=== PATIENT | female | born 1940 | race Caucasian/White ===

== ENCOUNTER 2016-04-30 15:02 | Inpatient (IN) | payer MEDICARE, OTHER ==
[~2016-04-30] VITALS: Ht 170.2 cm; Wt 80.3 kg
[~2016-04-30 15:02] MED LIST: ALPR.25 PO; AMLO5TAB2 PO; ASPI1TAB69 PO; BUSP1TAB PO; CALC1TAB30 PO; COLA100C3 PO; FLOR250C PO; LEVO.125 PO; LIPI40TA PO; LYRI75CA PO; MULT-135 PO; TOVI8TAB PO; TRAM50TA PO
[2016-05-08] MEDS ORDERED: PROPOFOL 200 MG/20 ML AMP IV ONE (12:00)
[2016-05-08] MEDS ORDERED: LACTATED RINGER'S 1000 ML INJ 1,000 ML IV ONE (12:00)
[2016-05-08] MEDS ORDERED: ceFAZolin 1,000 MG/NS 100 ML IV SCH ×2 (13:00)
[2016-05-08] MEDS ORDERED: DEXT 5%-NACL 0.9% 1000 ML INJ 1,000 ML IV SCH (13:00)
[2016-05-08] MEDS ORDERED: METRONIDAZOLE 500 MG/100 ML ISONTONIC SOLN IV SCH (13:00)
[2016-05-08] MEDS ORDERED: INSULIN HUMAN REGULAR 1,000 UNITS/10 ML VIAL SQ PRN (13:00)
[2016-05-08] MEDS ORDERED: ALVIMOPAN 12 MG CAPSULE - On Call PO SCH (13:00)
[2016-05-08] MEDS ORDERED: SODIUM CHLORID 0.9% 500 ML IV SCH (13:00)
[2016-05-08] MEDS ORDERED: LACTATED RINGER'S 1000 ML IV SCH (13:00)
[2016-05-08] MEDS ORDERED: METOPROLOL TARTRATE 25 MG TAB PO PRN (13:00)
--- NOTE | 2016-05-08 13:05 | PD.HP.UP ---
H&P Update Note The Pre-Admit History and Physical Examination regarding the above named patient was reviewed (including, but not limited to, vital signs, heart, lungs, co-morbid conditions), and upon re-examination it is noted that: the patient's condition has not significantly changed since the last examination. Herve Campa MD May 08, 2016 13:05
[2016-05-08 13:41] VITALS: BP 155/77; PULSE 65; RESP 16; TEMP 98.4; O2SAT 99
[2016-05-08] MEDS: ALVIMOPAN 12 MG CAPSULE - Post-op dosing PO SCH (14:06)
[2016-05-08] MEDS ORDERED: FAMOTIDINE 20 MG/2 ML VIAL ONE (15:39)
[2016-05-08] MEDS ORDERED: MIDAZOLAM HCL 2 MG/2 ML VIAL ONE (15:39)
[2016-05-08] MEDS ORDERED: ACETAMINOPHEN 1000 MG/100 ML VIAL IV ONE (15:39)
[2016-05-08] MEDS ORDERED: DEXAMETHASONE SOD PHOS 4 MG/ML VIAL ONE (15:39)
[2016-05-08] MEDS ORDERED: MORPHINE SULFATE 4 MG/ML INJ ONE (15:47)
[2016-05-08] MEDS ORDERED: SUGAMMADEX SODIUM 200 MG/2 ML VIAL IV PUSH ONE ×2 (17:25)
[2016-05-08] MEDS ORDERED: POTASSIUM CHLOR 40 MEQ PREMIX 100 ML IV PRN (17:45)
[2016-05-08] MEDS ORDERED: NALOXONE HCL 0.4 MG/ML AMP IV PRN (17:45)
[2016-05-08] MEDS ORDERED: POTASSIUM CHLOR 20 MEQ PREMIX 100 ML IV PRN (17:45)
[2016-05-08] MEDS ORDERED: KETOROLAC TROMETHAMINE 30 MG/ML (IVP) VIAL IVP PRN (17:45)
[2016-05-08] MEDS ORDERED: ACETAMINOPHEN 325 MG TAB PO PRN (17:45)
[2016-05-08] MEDS ORDERED: BENZOCAINE 6 MG/MENTHOL 10 MG LOZENGE SUCK-ON PRN (17:45)
[2016-05-08] MEDS ORDERED: SODIUM CHLORIDE 0.9% FLUSH 5 ML FLUSH IVF PRN (17:45)
[2016-05-08] MEDS ORDERED: Post-op Orders (for Pharmacy) MISC XX ONE (17:45)
[2016-05-08] MEDS ORDERED: ENALAPRILAT 1.25 MG/ML VIAL IV PRN (17:45)
[2016-05-08] MEDS ORDERED: ENALAPRILAT 2.5 MG/2 ML VIAL IV PRN (17:45)
[2016-05-08] MEDS ORDERED: ONDANSETRON HCL 4 MG/2 ML VIAL IV PRN (17:45)
[2016-05-08] MEDS ORDERED: BUPIVACAINE HCL PF 0.5% 30 ML VIAL NB SCH (17:45)
[2016-05-08] MEDS ORDERED: *MEPERIDINE 25 MG INJ VIAL PERIprocedural Use ONLY ONE (17:46)
[2016-05-08] MEDS ORDERED: fentaNYL CITRATE 250 MCG/5 ML AMP ONE (17:51)
[2016-05-08] MEDS ORDERED: *morphine SULFATE 8 MG/ML PERIprocedure ONLY ONE ×3 (17:54→18:20)
[2016-05-08] MEDS ORDERED: PILL SPLITTER OTHER PRN (18:00)
[2016-05-08] MEDS ORDERED: *ONDANSETRON 4 MG VIAL PERIprocedural Use ONLY ONE (18:09)
[2016-05-08] MEDS: D5-NS + KCL 20 MEQ INJ 1,000 ML IV SCH (18:10)
[2016-05-08] MEDS: MORPHINE SULFATE 30 MG/30 ML PCA IV SCH (18:10)
[2016-05-08] MEDS ORDERED: *HYDROmorphone PF 1 MG VIAL PERIprocedural Use ONLY ONE ×2 (18:31→19:05)
[2016-05-08] MEDS: METOCLOPRAMIDE HCL 10 MG/2 ML VIAL IVS SCH (20:31)
[2016-05-08] MEDS: ATORVASTATIN 40 MG TAB PO SCH (21:00)
[2016-05-08] MEDS: busPIRone HCL 5 MG TAB PO SCH (21:00)
[2016-05-08 22:00] VITALS: BP 138/76; PULSE 72; RESP 16; TEMP 97.9; O2SAT 98
[2016-05-08] MEDS: metroNIDAZOLE 500 MG INJ 100 ML IV SCH (22:00)
[2016-05-08] MEDS: PCA - TOTAL MG MORPHINE DELIVERED PER SHIFT SCH (22:00)
[2016-05-08 22:30] VITALS: PULSE 79
[2016-05-09] VITALS (21 sets, daily range): BP systolic 117–157; BP diastolic 59–72; PULSE 72–94; RESP 16–20; TEMP 98–99.5; O2SAT 94–98
[2016-05-09] MEDS: D5-NS + KCL 20 MEQ INJ 1,000 ML IV SCH ×4 (00:51→17:34)
[2016-05-09] MEDS: metroNIDAZOLE 500 MG INJ 100 ML IV SCH ×2 (05:09→13:22)
[2016-05-09] MEDS: LEVOTHYROXINE SODIUM 125 MCG TAB PO SCH (05:10)
[2016-05-09 06:51] LABS: AUTOMATED NEUTROPHIL # 13.3 TH/MM3 (1.8-7.7); BASOPHIL % 0.1 % (0.0-2.0); HEMATOCRIT 36.5 % (35.0-46.0); HEMO FLAGS DIFF FINAL; LYMPH % 4.4 % (9.0-44.0); LYMPHOCYTE # 0.7 TH/MM3 (1.0-4.8); MONO % 8.2 % (0.0-8.0); NEUT % 87.3 % (16.0-70.0); PLATELET COUNT 193 TH/MM3 (150-450); RED BLOOD COUNT 4.02 MIL/MM3 (4.00-5.30); RED CELL DISTRIBUTION WIDTH 13.3 % (11.6-17.2); WHITE BLOOD COUNT 15.2 TH/MM3 (4.0-11.0)
[2016-05-09 07:09] LABS: BICARBONATE 23.2 MEQ/L (21.0-32.0); POTASSIUM 4.5 MEQ/L (3.5-5.1)
[2016-05-09] MEDS: METOCLOPRAMIDE HCL 10 MG/2 ML VIAL IVS SCH ×2 (08:36→20:54)
[2016-05-09] MEDS: PANTOPRAZOLE SODIUM 40 MG VIAL IVP SCH (08:37)
[2016-05-09] MEDS: SODIUM CHLORIDE 0.9% FLUSH 5 ML FLUSH IVF SCH ×2 (08:37→20:54)
[2016-05-09] MEDS: PREGABALIN 75 MG CAP PO SCH ×3 (08:38→17:20)
[2016-05-09] MEDS: amLODIPine BESYLATE 5 MG TAB PO SCH (08:38)
[2016-05-09] MEDS: DOCUSATE SODIUM 100 MG CAP PO SCH (08:38)
[2016-05-09] MEDS: busPIRone HCL 5 MG TAB PO SCH ×2 (08:39→20:54)
[2016-05-09] MEDS: PANTOPRAZOLE SOD 40 MG DELAYED RELEASE TAB PO SCH (08:39)
[2016-05-09] MEDS: ALPRAZolam 0.25 MG TAB PO PRN (08:42)
[2016-05-09] MEDS ORDERED: PNEUMOCOCCAL POLYVALENT INJ 25 MCG/0.5 ML SYR IM ONE (10:00)
[2016-05-09] MEDS: MORPHINE SULFATE 30 MG/30 ML PCA IV SCH (12:35)
--- NOTE | 2016-05-09 13:21 | HHI.PR ---
Subjective Remarks C/R Surg POD #1 afebrile, VSS UO good gage MIN Objective - Vital Signs Date Time Temp Pulse Resp B/P Pulse Ox O2 Delivery O2 Flow Rate FiO2 05/09/16 12:35 18 05/09/16 11:00 79 05/09/16 08:00 98.3 157/71 98 05/09/16 08:00 Room Air 05/08/16 21:55 2 Result Diagram: 05/09/1630 05/09/16 0530 Objective Remarks PE alert Abd - soft, wound dry, min tympany A/P Assessment and Plan Imp: stable post-op OOB tx to floor decr IVF Herve Campa MD May 09, 2016 13:21
[2016-05-09] MEDS: PCA - TOTAL MG MORPHINE DELIVERED PER SHIFT SCH ×2 (13:59→20:55)
[2016-05-09] MEDS: ATORVASTATIN 40 MG TAB PO SCH (20:54)
[2016-05-09] MEDS: ALVIMOPAN 12 MG CAPSULE - Post-op dosing PO SCH (20:54)
[2016-05-09] MEDS ORDERED: ALVIMOPAN 12 MG CAPSULE PO SCH (21:00)
[2016-05-10] VITALS (12 sets, daily range): BP systolic 120–170; BP diastolic 60–79; PULSE 18–105; RESP 16–20; TEMP 98.1–99.5; O2SAT 92–96
[2016-05-10] MEDS: D5-NS + KCL 20 MEQ INJ 1,000 ML IV SCH ×2 (03:24→16:07)
[2016-05-10] MEDS: PCA - TOTAL MG MORPHINE DELIVERED PER SHIFT SCH ×2 (06:00→14:00)
[2016-05-10] MEDS: LEVOTHYROXINE SODIUM 125 MCG TAB PO SCH (06:09)
[2016-05-10 06:34] LABS: AUTOMATED NEUTROPHIL # 7.3 TH/MM3 (1.8-7.7); BASOPHIL % 0.3 % (0.0-2.0); EOSINOPHIL # 0.2 TH/MM3 (0-0.4); EOSINOPHIL % 1.7 % (0.0-4.0); HEMATOCRIT 32.5 % (35.0-46.0); HEMO FLAGS DIFF FINAL; LYMPH % 9.7 % (9.0-44.0); LYMPHOCYTE # 0.9 TH/MM3 (1.0-4.8); MEAN CELL VOLUME 91.2 FL (80.0-100.0); MEAN CORPUSCULAR HEMOGLOBIN 30.3 PG (27.0-34.0); MEAN CORPUSCULAR HGB CONC 33.2 % (32.0-36.0); MONO % 11.6 % (0.0-8.0); NEUT % 76.7 % (16.0-70.0); PLATELET COUNT 147 TH/MM3 (150-450); RED BLOOD COUNT 3.56 MIL/MM3 (4.00-5.30); WHITE BLOOD COUNT 9.5 TH/MM3 (4.0-11.0)
[2016-05-10 06:58] LABS: BICARBONATE 19.8 MEQ/L (21.0-32.0); POTASSIUM 4.6 MEQ/L (3.5-5.1)
[2016-05-10] MEDS: busPIRone HCL 5 MG TAB PO SCH ×2 (08:46→20:10)
[2016-05-10] MEDS: PREGABALIN 75 MG CAP PO SCH ×3 (08:46→16:59)
[2016-05-10] MEDS: PANTOPRAZOLE SOD 40 MG DELAYED RELEASE TAB PO SCH (08:46)
[2016-05-10] MEDS: ALVIMOPAN 12 MG CAPSULE - Post-op dosing PO SCH ×2 (08:46→20:08)
[2016-05-10] MEDS: PANTOPRAZOLE SODIUM 40 MG VIAL IVP SCH (08:46)
[2016-05-10] MEDS: DOCUSATE SODIUM 100 MG CAP PO SCH (08:47)
[2016-05-10] MEDS: SODIUM CHLORIDE 0.9% FLUSH 5 ML FLUSH IVF SCH ×2 (08:47→20:10)
[2016-05-10] MEDS: METOCLOPRAMIDE HCL 10 MG/2 ML VIAL IVS SCH ×2 (08:47→20:09)
[2016-05-10] MEDS: amLODIPine BESYLATE 5 MG TAB PO SCH (09:00)
[2016-05-10] MEDS: FUROSEMIDE 20 MG/2 ML VIAL IV PUSH SCH ×2 (11:11→20:10)
[2016-05-10] MEDS ORDERED: DOCUSATE SODIUM 100 MG CAP PO PRN (18:15)
[2016-05-10] MEDS: ATORVASTATIN 40 MG TAB PO SCH (20:08)
[2016-05-10] MEDS: ALPRAZolam 0.25 MG TAB PO PRN (20:26)
--- NOTE | 2016-05-10 22:16 | HHI.PR ---
Subjective Remarks C/R Surg POD #2 afebrile, VSS UO good gage mod Objective - Vital Signs Date Time Temp Pulse Resp B/P Pulse Ox O2 Delivery O2 Flow Rate FiO2 05/10/16 20:00 99.0 105 20 170/79 96 05/10/16 20:00 Room Air 05/08/16 21:55 2 Result Diagram: 05/10/16 0535 05/10/1635 Objective Remarks PE alert Abd - soft, wound dry, min tympany, no BM A/P Assessment and Plan Imp: OOB tx to floor decr IVF start PO Herve Campa MD May 10, 2016 22:16
[2016-05-11] VITALS (7 sets, daily range): BP systolic 116–154; BP diastolic 57–94; PULSE 68–97; RESP 17–18; TEMP 98.2–99.2; O2SAT 94–98
[2016-05-11] MEDS: D5-NS + KCL 20 MEQ INJ 1,000 ML IV SCH ×2 (04:46→12:43)
[2016-05-11] MEDS: LEVOTHYROXINE SODIUM 125 MCG TAB PO SCH (05:24)
[2016-05-11] MEDS: busPIRone HCL 5 MG TAB PO SCH ×2 (09:25→20:55)
[2016-05-11] MEDS: METOCLOPRAMIDE HCL 10 MG/2 ML VIAL IVS SCH ×2 (09:25→19:53)
[2016-05-11] MEDS: ALVIMOPAN 12 MG CAPSULE - Post-op dosing PO SCH ×2 (09:25→19:53)
[2016-05-11] MEDS: amLODIPine BESYLATE 5 MG TAB PO SCH (09:25)
[2016-05-11] MEDS: PANTOPRAZOLE SOD 40 MG DELAYED RELEASE TAB PO SCH (09:26)
[2016-05-11] MEDS: PANTOPRAZOLE SODIUM 40 MG VIAL IVP SCH (09:26)
[2016-05-11] MEDS: SODIUM CHLORIDE 0.9% FLUSH 5 ML FLUSH IVF SCH ×2 (09:26→19:52)
[2016-05-11] MEDS: FUROSEMIDE 20 MG/2 ML VIAL IV PUSH SCH ×2 (09:27→19:52)
[2016-05-11] MEDS: PREGABALIN 75 MG CAP PO SCH ×3 (09:27→16:51)
[2016-05-11] MEDS: ACETAMINOPHEN/HYDROcodone 325 MG/5 MG TAB PO PRN ×3 (09:32→21:45)
--- NOTE | 2016-05-11 11:50 | HHI.PR ---
Subjective Remarks Up in chair. No N or V. No BMs. Objective Vital Signs Date Time Temp Pulse Resp B/P Pulse Ox O2 Delivery O2 Flow Rate FiO2 05/11/16 07:50 Room Air 05/11/16 07:50 98.9 90 18 147/72 94 05/11/16 07:20 83 05/11/16 04:00 Room Air 05/11/16 04:00 98.4 87 18 130/64 97 05/11/16 00:00 Room Air 05/11/16 00:00 98.7 86 18 116/57 98 05/10/16 20:00 105 05/10/16 20:00 99.0 105 20 170/79 96 05/10/16 20:00 Room Air 05/10/16 15:00 98.5 18 18 155/71 96 05/10/16 14:00 18 I/O 05/10/16 05/10/16 05/10/16 05/11/16 05/11/16 05/11/16 07:00 15:00 23:00 07:00 15:00 23:00 Intake Total 1040 ml 2400 ml 1200 ml Output Total 280 ml 6040 ml 2500 ml Balance 760 ml -3640 ml -1300 ml Intake Oral 240 ml 700 ml IV Total 800 ml 2400 ml 500 ml Output Urine Total 250 ml 5900 ml 2500 ml Emesis 0 ml 0 ml Drainage Total 30 ml 140 ml # Bowel Movements 0 0 0 Result Diagram: 05/10/16 0535 05/10/16 0535 Objective Remarks VS-S Abd: soft,wound clean Assessment and Plan Assessment and Plan Stable POD#3 Plan to try to D/C pérez. Reg diet. D/C tele. To Arielle. Young Wood MD May 11, 2016 11:50
[2016-05-11] MEDS: BISACODYL 10 MG SUPP RECTAL SCH (13:01)
[2016-05-11] MEDS: ATORVASTATIN 40 MG TAB PO SCH (19:53)
[2016-05-12] VITALS: BP 127/74; PULSE 82; RESP 17; TEMP 98.7; O2SAT 97
[2016-05-12] MEDS: LEVOTHYROXINE SODIUM 125 MCG TAB PO SCH (05:41)
[2016-05-12] MEDS: D5-NS + KCL 20 MEQ INJ 1,000 ML IV SCH ×2 (07:26→20:46)
[2016-05-12 08:14] VITALS: BP 144/79; PULSE 90; RESP 18; TEMP 98.2; O2SAT 96
[2016-05-12] MEDS: PREGABALIN 75 MG CAP PO SCH ×3 (08:31→16:48)
[2016-05-12] MEDS: PANTOPRAZOLE SOD 40 MG DELAYED RELEASE TAB PO SCH (08:31)
[2016-05-12] MEDS: PANTOPRAZOLE SODIUM 40 MG VIAL IVP SCH (08:32)
[2016-05-12] MEDS: ALVIMOPAN 12 MG CAPSULE - Post-op dosing PO SCH ×2 (08:32→20:49)
[2016-05-12] MEDS: amLODIPine BESYLATE 5 MG TAB PO SCH (08:33)
[2016-05-12] MEDS: FUROSEMIDE 20 MG/2 ML VIAL IV PUSH SCH (08:34)
[2016-05-12] MEDS: METOCLOPRAMIDE HCL 10 MG/2 ML VIAL IVS SCH ×2 (08:34→20:49)
[2016-05-12] MEDS: SODIUM CHLORIDE 0.9% FLUSH 5 ML FLUSH IVF SCH ×2 (08:35→20:49)
[2016-05-12] MEDS: busPIRone HCL 5 MG TAB PO SCH ×2 (09:20→20:49)
[2016-05-12] MEDS: BISACODYL 10 MG SUPP RECTAL SCH (09:22)
[2016-05-12] MEDS: ACETAMINOPHEN/HYDROcodone 325 MG/5 MG TAB PO PRN ×2 (09:35→20:50)
--- NOTE | 2016-05-12 10:42 | HHI.PR ---
Subjective Remarks Up in chair. No N or V. No BMs. Does not feel strong enough for D/C Objective Vital Signs Date Time Temp Pulse Resp B/P Pulse Ox O2 Delivery O2 Flow Rate FiO2 05/12/16 08:14 98.2 90 18 144/79 96 05/12/16 00:00 98.7 82 17 127/74 97 05/11/16 20:00 99.2 91 17 137/74 97 05/11/16 15:00 98.2 97 18 154/94 98 05/11/16 11:00 98.6 68 18 116/63 94 I/O 05/11/16 05/11/16 05/11/16 05/12/16 05/12/16 05/12/16 07:00 15:00 23:00 07:00 15:00 23:00 Intake Total 1200 ml 1240 ml 240 ml 120 ml Output Total 2500 ml 2130 ml 600 ml Balance -1300 ml -890 ml -360 ml 120 ml Intake Oral 700 ml 1240 ml 240 ml 120 ml IV Total 500 ml 0 ml Output Urine Total 2500 ml 2000 ml 600 ml Emesis 0 ml Drainage Total 130 ml # Bowel Movements 0 0 Result Diagram: 05/10/16 0535 05/10/16 0535 Objective Remarks VS-S Abd: soft,wound clean,no distention Assessment and Plan Assessment and Plan Stable POD Reg diet. IV hep lock yesterday. C/O Lasix up all night with Diuresis. D/C Young Sim MD May 12, 2016 10:42
[2016-05-12 11:56] VITALS: BP 129/72; PULSE 94; RESP 19; TEMP 98.1; O2SAT 96
[2016-05-12 16:00] VITALS: BP 152/76; PULSE 103; RESP 19; TEMP 97.4; O2SAT 95
[2016-05-12 20:00] VITALS: BP 161/72; PULSE 96; RESP 18; TEMP 98.4; O2SAT 98
[2016-05-12] MEDS: ATORVASTATIN 40 MG TAB PO SCH (20:50)
--- NOTE | 2016-05-12 21:56 | MP ---
cc: LUC SHABAZZ M.D. DATE OF SURGERY May 08, 2016 PREOPERATIVE DIAGNOSIS Rectal prolapse. PROCEDURE Exploratory laparotomy with rectopexy and bladder suspension. POSTOPERATIVE DIAGNOSES 1. Rectal prolapse. 2. Urinary retention. SURGEON Dr. Shabazz. COLLAR WORKER Dr. Mak Brothers PROCEDURE DETAILS The patient was placed in the supine position. After adequate general anesthesia her legs were placed in [place] stirrups and supported appropriately. The abdomen, perineum were then prepped with Betadine solution and draped in the usual sterile fashion. With Dr. Brothers's assistance a transverse incision was made in the lower abdomen and taken down through subcutaneous tissues. The fascia was opened in a transverse manner. The rectus muscles split along the midline and the peritoneal cavity entered. Omental adhesions to the parietal peritoneum were taken down sharply. There were also loops of small bowel stuck down in the pelvis. These were tediously removed to free the pelvis. The sigmoid colon was quite redundant and had to be mobilized up out of the pelvis as well. Final exploration did reveal a very long deep cul-de-sac consistent with her prolapse. The bladder was very floppy and atonic consistent with her urinary retention. Small bowel was run from the ligament of Treitz down to the ileocecal valve and felt to be pretty unremarkable. The uterus and ovaries were surgically absent. First the right retroperitoneal space was opened as was the left saving perineal attachments to the colon. The presacral space was identified and the bowel dissected off the presacral fascia continuing the dissection down toward the pelvic floor for full rectal mobilization. After complete mobilization, attention was turned to the rectopexy. The rectum was pulled against the sacral fascia and two horizontal mattress stitches placed on each side of the rectum through the peritoneal attachments for the fixation. After tying the fixation sutures, the rectum did appear to be adequately held in place and there was no undue tension or narrowing of the lumen. The presacral space was irrigated and hemostasis achieved. Myles-Danielle drain placed down into the presacral space and brought up on the right side of the abdomen, secured to the skin with a nylon suture. The transverse incision was then closed anatomically using #1 PDS sutures to reapproximate the rectus muscles and posterior peritoneum as well as incorporating the bladder in the closure. The anterior rectus fascia was then closed with a running #1 PDS suture as well. Subcu tissues were irrigated and the skin closed with a running subcuticular Vicryl suture. Wound area washed with normal saline and dried, sterile dressing of Telfa and gauze applied. The patient tolerated the procedure quite well and was brought to recovery room in stable condition. Sponge and needle counts were correct at the end of procedure. MD FUENTES Christensen/STEVEN /1:51 PM /8:46 PM
[2016-05-13] VITALS: BP 119/59; PULSE 82; RESP 17; TEMP 98.2; O2SAT 94
[2016-05-13] MEDS: LEVOTHYROXINE SODIUM 125 MCG TAB PO SCH (04:42)
[2016-05-13 08:00] VITALS: BP 166/78; PULSE 91; RESP 18; TEMP 97.6; O2SAT 95
[2016-05-13] MEDS: PANTOPRAZOLE SODIUM 40 MG VIAL IVP SCH (09:00)
[2016-05-13] MEDS: METOCLOPRAMIDE HCL 10 MG/2 ML VIAL IVS SCH (09:07)
[2016-05-13] MEDS: PANTOPRAZOLE SOD 40 MG DELAYED RELEASE TAB PO SCH (09:07)
[2016-05-13] MEDS: PREGABALIN 75 MG CAP PO SCH ×3 (09:07→17:38)
[2016-05-13] MEDS: ALVIMOPAN 12 MG CAPSULE - Post-op dosing PO SCH ×2 (09:07→21:42)
[2016-05-13] MEDS: amLODIPine BESYLATE 5 MG TAB PO SCH (09:07)
[2016-05-13] MEDS: busPIRone HCL 5 MG TAB PO SCH ×2 (09:07→21:43)
[2016-05-13] MEDS: BISACODYL 10 MG SUPP RECTAL SCH (09:08)
[2016-05-13] MEDS: SODIUM CHLORIDE 0.9% FLUSH 5 ML FLUSH IVF SCH ×2 (09:08→21:42)
[2016-05-13] MEDS: ACETAMINOPHEN/HYDROcodone 325 MG/5 MG TAB PO PRN ×2 (09:09→21:47)
[2016-05-13] MEDS: D5-NS + KCL 20 MEQ INJ 1,000 ML IV SCH ×2 (10:06→21:43)
[2016-05-13 12:00] VITALS: BP 130/59; PULSE 78; RESP 18; TEMP 96.9; O2SAT 95
[2016-05-13 16:00] VITALS: BP 133/61; PULSE 85; RESP 19; TEMP 95.7; O2SAT 97
[2016-05-13] MEDS ORDERED: HYDR-3516 PO (17:18)
[2016-05-13] MEDS: POLYETHYLENE GLYCOL 17 GM PKG PO SCH (17:38)
[2016-05-13] MEDS ORDERED: METOCLOPRAMIDE HCL 10 MG/2 ML VIAL IVS PRN (18:00)
--- NOTE | 2016-05-13 20:14 | HHI.PR ---
Subjective Remarks C/R Surg POD #5 afebrile, VSS UO good gage mod +flatus Objective - Vital Signs Date Time Temp Pulse Resp B/P Pulse Ox O2 Delivery O2 Flow Rate FiO2 05/13/16 16:00 95.7 85 19 133/61 97 05/11/16 07:50 Room Air Result Diagram: 05/10/16 0535 05/10/16 0535 Objective Remarks PE alert Abd - soft, wound dry, min tympany, no BM A/P Assessment and Plan Imp: OOB decr IVF start PO dc plans for rehab Herve Campa MD May 13, 2016 20:14
[2016-05-13] MEDS: ATORVASTATIN 40 MG TAB PO SCH (21:42)
[2016-05-13 22:16] VITALS: BP 153/75; PULSE 87; RESP 18; TEMP 98.9; O2SAT 95
[2016-05-14 01:03] VITALS: BP 144/78; PULSE 89; RESP 18; TEMP 98.7; O2SAT 94
[2016-05-14] MEDS: ACETAMINOPHEN/HYDROcodone 325 MG/5 MG TAB PO PRN ×3 (03:23→14:43)
[2016-05-14] MEDS: ALPRAZolam 0.25 MG TAB PO PRN (03:28)
[2016-05-14] MEDS: LEVOTHYROXINE SODIUM 125 MCG TAB PO SCH (06:08)
[2016-05-14 08:10] VITALS: BP 139/71; PULSE 81; RESP 19; TEMP 96; O2SAT 96
[2016-05-14] MEDS: PANTOPRAZOLE SODIUM 40 MG VIAL IVP SCH (09:00)
[2016-05-14] MEDS: BISACODYL 10 MG SUPP RECTAL SCH (09:00)
[2016-05-14] MEDS: ALVIMOPAN 12 MG CAPSULE - Post-op dosing PO SCH (09:30)
[2016-05-14] MEDS: PREGABALIN 75 MG CAP PO SCH ×2 (09:30→14:42)
[2016-05-14] MEDS: PANTOPRAZOLE SOD 40 MG DELAYED RELEASE TAB PO SCH (09:30)
[2016-05-14] MEDS: busPIRone HCL 5 MG TAB PO SCH (09:30)
[2016-05-14] MEDS: amLODIPine BESYLATE 5 MG TAB PO SCH (09:30)
[2016-05-14] MEDS: SODIUM CHLORIDE 0.9% FLUSH 5 ML FLUSH IVF SCH (09:31)
[2016-05-14] MEDS: POLYETHYLENE GLYCOL 17 GM PKG PO SCH (09:31)
[2016-05-14 12:00] VITALS: BP 155/73; PULSE 90; RESP 18; TEMP 97.2; O2SAT 97
[2016-05-14] MEDS: D5-NS + KCL 20 MEQ INJ 1,000 ML IV SCH (12:46)
--- NOTE | 2016-06-25 13:24 | MD ---
cc: LUC SHABAZZ M.D., JOSE ADMISSION DATE: 05/08/2016 DISCHARGE DATE: 05/14/2016 ADMISSION DIAGNOSIS Full thickness rectal prolapse. PROCEDURE May 08, 2016 - Exploratory laparotomy with rectopexy and bladder suspension. DISCHARGE DIAGNOSES 1. Rectal prolapse. 2. Urinary retention. HISTORY OF PRESENT ILLNESS Ms. Arce is a 76-year-old female who has doing fairly well, noticing prolapse of her rectum now for several weeks. She complains of mucus discharge and a little bit of punctate bleeding, especially when the prolapse is outside. Has rectal pressure and pelvic fullness. Denies any diarrhea. Strains a little bit with bowel movements. Denies abdominal pain, nausea, vomiting or melena. Appetite has been good and she denies any present weight loss. Please see the admitting history and physical for a more complete past medical and surgical history. PERTINENT PHYSICAL GENERAL: A very heavy-set, pleasant female in no acute distress. ABDOMEN: Rounded and full, not really distended. Normal bowel sounds. No rebound or guarding or masses noted. ANAL INSPECTION: Revealed weakness of the sphincter with full-thickness prolapse upon straining, easily reducible. Edematous mucosa but no real masses. HOSPITAL COURSE After admission, the patient was taken to the operating room at which point she was found to be in urinary retention with over 1000 cc of urine in the bladder. She also had a full-thickness rectal prolapse which was edematous and prolapsed which was reduced after anesthesia was administered. The patient underwent abdominal exploratory laparotomy and rectopexy. The sigmoid colon was slightly redundant but was not resected during the procedure. She tolerated the procedure quite well. Postoperatively she had rather slow return of her bowel function. Her diet was advanced slowly. She was maintained on some stool softeners to avoid straining. She continued to require some physical therapy for muscle strengthening. She also required some diuretics for mobilization of perioperative fluid. She continued to gain strength and eventually was considered for discharge to rehab which was completed on May 14, 2016. FINAL DISCHARGE INSTRUCTIONS The patient was discharged to continue physical therapy. Diet was to continue as tolerated with laxative and the stool softeners to assist in soft bowel movements. The patient will be seen in the office in one week's time for routine follow-up. Any problems prior to the office visit, she was instructed to call for more urgent attention. MD FUENTES Christensen/SSB /8:37 PM /1:16 PM
== END 2016-05-14 16:08 | DRG 331 ==
LOC: HSDI 05-08 12:24 → HCIS 05-08 21:58 → N07A 05-11 18:39
PROVIDERS: ADMIT Colon & Rectal Surgery; ATTEND Colon & Rectal Surgery
PROC: 0TSC0ZZ Reposition Bladder Neck, Open Approach (ICD-10-PCS; 2016-05-08)
PROC: 0DQP0ZZ Repair Rectum, Open Approach (ICD-10-PCS; principal; 2016-05-08 15:56)
DX: K62.3 Rectal prolapse (principal); N31.2 Flaccid neuropathic bladder, not elsewhere classified; R33.9 Retention of urine, unspecified; F41.9 Anxiety disorder, unspecified; M79.7 Fibromyalgia
CPT/HCPCS: 80048; 85025; 86850; 86900; 86901; 94150; C9113; J0131; J0690; J1100; J1170; J1885; J1940; J2175; J2250; J2270; J2405; J2765; J3010; J3480; J7120

== ENCOUNTER → 2016-05-02 | Outpatient (CLI) | payer MEDICARE, OTHER ==
[~2016-05-02] MED LIST changes: +HYDR-3516 PO; +PHEN1LIQ60 PO; +PLAQ200T PO
[2016-05-02 09:42] LABS: AUTOMATED NEUTROPHIL # 3.6 TH/MM3 (1.8-7.7); BASOPHIL % 0.7 % (0.0-2.0); EOSINOPHIL # 0.3 TH/MM3 (0-0.4); EOSINOPHIL % 5.4 % (0.0-4.0); HEMATOCRIT 37.9 % (35.0-46.0); HEMO FLAGS DIFF FINAL; LYMPH % 25.9 % (9.0-44.0); LYMPHOCYTE # 1.6 TH/MM3 (1.0-4.8); MEAN CELL VOLUME 90.7 FL (80.0-100.0); MEAN CORPUSCULAR HEMOGLOBIN 29.6 PG (27.0-34.0); MEAN CORPUSCULAR HGB CONC 32.6 % (32.0-36.0); MONO % 9.2 % (0.0-8.0); NEUT % 58.8 % (16.0-70.0); PLATELET COUNT 195 TH/MM3 (150-450); RED BLOOD COUNT 4.18 MIL/MM3 (4.00-5.30); RED CELL DISTRIBUTION WIDTH 14.1 % (11.6-17.2); WHITE BLOOD COUNT 6.1 TH/MM3 (4.0-11.0)
[2016-05-02 09:47] LABS: APTT (PATIENT) 26.4 SEC (24.3-30.1); INTERNATIONAL NORMALIZED RATIO 0.9 RATIO; PROTHROMBIN TIME - PATIENT 10.3 SEC (9.8-11.6)
[2016-05-02 09:49] LABS: BACTERIA, URINE FEW /hpf; BLOOD, URINE NEG (NEG); COMMENT (UR) CULT NOT INDICATED; CULTURE IF INDICATED CULT NOT INDICATED; GLUCOSE,URINE NEG (NEG); KETONE, URINE NEG (NEG); MUCUS URINE FEW /lpf (OCC); NITRITE,URINE NEG (NEG); PH, URINE 6.5 (5.0-8.5); SQUAMOUS EPITHELIAL CELL URINE 10 /hpf (0-5); URINE COLOR YELLOW (YELLW/STRAW)
[2016-05-02 10:13] LABS: ALKALINE PHOSPHATASE 123 U/L (45-117); ALT (GPT) 24 U/L (10-53); ANION GAP 7 MEQ/L (5-15); AST (GOT) 14 U/L (15-37); BICARBONATE 27.4 MEQ/L (21.0-32.0); BLOOD UREA NITROGEN 19 MG/DL (7-18); CHLORIDE 109 MEQ/L (98-107); GLOMERULAR FILTRATION RATE 44 ML/MIN (>89); GLUCOSE,FASTING 91 MG/DL (74-99); SODIUM (NA) 143 MEQ/L (136-145); TOTAL BILIRUBIN ADULT 0.4 MG/DL (0.2-1.0)
--- NOTE | 2016-05-02 10:37 | RADRPT ---
EXAM DATE/TIME: 05/02/2016 10:02 [place] COMPARISON: No previous studies available for comparison. INDICATIONS : Evaluate for pneumonia, pneumothorax or communicable disease. Pre op for rectal prolapse surgery. 05-08. MEDICAL HISTORY : None. SURGICAL HISTORY : None. ENCOUNTER: Initial ACUITY: 1 day PAIN SCORE: 0/10 LOCATION: Bilateral chest FINDINGS: PA and lateral views of the chest demonstrate the lungs to be symmetrically aerated without evidence of mass, infiltrate or effusion. The cardiomediastinal contours are unremarkable. Osseous structure s are intact. CONCLUSION: Normal examination. Carlitos Medina MD on May 02, 2016 at 10:36 Board Certified Radiologist. This report was verified electronically.
== END ==
LOC: CPRE 08:56
PROVIDERS: ATTEND Colon & Rectal Surgery
DX: Z01.811 Encounter for preprocedural respiratory examination (principal); Z01.812 Encounter for preprocedural laboratory examination; K62.3 Rectal prolapse; Z79.01 Long term (current) use of anticoagulants
CPT/HCPCS: 36415; 71020; 80053; 81001; 85025; 85610; 85730